=== PATIENT | female | born 1995 | race Caucasian/White ===

== ENCOUNTER 2016-12-03 18:57 | Emergency (ER) | payer MEDICAID, OTHER ==
[2016-12-03 20:08] LABS: Clarity Hazy (Clear); Glucose, Urine (Dipstick) Negative (Negative); Leukocyte Moderate (Negative); Nitrite Negative (Negative); Pregnancy Test - Urine (BHCG) Negative (Negative); Pregu Control Background? CLEAR/WHITE (CLR/WHITE); Pregu Control Bar Appear? YES (CONTROL BAR); Protein, Urine (Dipstick) Negative (Neg-Trace); Specific Gravity 1.015 (1.002-1.036); Specific Gravity, Urine 1.015 (1.005-1.030)
[2016-12-03 20:09] LABS: Bacteria/HPF 1+ HPF (None Seen); Bilirubin Negative (Negative); Blood, Urine Trace (Negative); RBC/HPF 0-3 HPF (0-3)
[2016-12-03 20:13] LABS: #Basophils 0.1 thou/uL (0.0-0.2); #Eosinphils 0.1 thou/uL (0.0-0.7); #Lymphocytes 2.3 thou/uL (1.20-3.40); #Monocytes 0.4 thou/uL (0.11-0.59); #Neutrophils 4.5 thou/uL (1.40-6.50); %Basophils 0.9 % (0.0-1.0); %Eosinophils 0.9 % (0.0-10.0); %Neutrophils 61.3 % (42.0-75.0); Hemoglobin 14.6 g/dL (12.0-16.0); Mean Corpuscular HGB CONC 35.4 g/dL (32.0-36.0); Mean Corpuscular Hemoglobin 31.8 pg (27.0-31.0); Mean Corpuscular Volume 89.7 fl (81.0-99.0); Mean Platelet Volume 12.3 fL (7.4-10.4); Platelet Count 139 thou/uL (130-400); RBC Distribution Width 11.1 % (11.5-14.5); Red Blood Cell (RBC) Count 4.59 mill/uL (4.20-5.40); White Blood Cell (WBC) Count 7.3 thou/uL (4.8-10.8)
[2016-12-03 20:14] LABS: ALT (SGPT) 117 U/L (8-55); AST (SGOT) 51 U/L (5-34); Alkaline Phosphatase 101 U/L (40-150); Anion Gap 16 mmol/L (10-20); Anisocytosis SLIGHT = 6-15 cells (100X) (0-5/hpf); BUN (Urea Nitrogen) 9 mg/dL (7.0-18.7); Bilirubin, Total 0.4 mg/dL (0.2-1.2); Calc. Creatinine Clearance 0 mL/min (70-130); Calcium 8.7 mg/dL (7.8-10.44); Carbon Dioxide 20 mmol/L (22-29); Chloride 107 mmol/L (98-107); Estimated GFR-MDRD Greater than 90; Globulin 2.6 g/dL (2.4-3.5); Glucose 124 mg/dL (70-105); MDiff Complete? YES; Potassium 3.7 mmol/L (3.5-5.1); Protein, Total 6.6 g/dL (6.0-8.3); Sodium 139 mmol/L (136-145)
[2016-12-03] MEDS ORDERED: traMADol HCl 50 MG TAB ONE (21:08)
[2016-12-03] MEDS ORDERED: Sulfameth/Trimethoprim DS 800-160mg TAB ONE (21:09)
[2016-12-03] MEDS ORDERED: Ondansetron ODT 4 MG TAB ONE (21:09)
[2016-12-03] MEDS ORDERED: Tobramycin Sulfate 0.3% Ophth Susp 5 ml Bottle ONE (21:34)
== END 2016-12-03 21:40 | disposition home or self-care (01) ==
LOC: MADERS 18:57
DX: N39.0 Urinary tract infection, site not specified (principal); H10.9 Unspecified conjunctivitis; F41.9 Anxiety disorder, unspecified; F17.200 Nicotine dependence, unspecified, uncomplicated; Z79.899 Other long term (current) drug therapy
CPT/HCPCS: 80053; 81001; 81025; 85025; 87086; 99284; Q0162

== ENCOUNTER 2017-03-10 13:48 | Emergency (ER) | payer MEDICAID, OTHER ==
[2017-03-10 14:31] LABS: Bilirubin Negative (Negative); Blood, Urine Trace (Negative); Clarity Clear (Clear); Glucose, Urine (Dipstick) Negative (Negative); Leukocyte Negative (Negative); Nitrite Negative (Negative); Protein, Urine (Dipstick) Negative (Neg-Trace); Specific Gravity, Urine 1.025 (1.005-1.030); Urobilinogen 0.2 mg/dL (0.2-1.0)
[2017-03-10 14:32] LABS: Bacteria/HPF Rare-Few HPF (None Seen); RBC/HPF 0-3 HPF (0-3); Squamous Epithelial 0-3 HPF (0-3); WBC/HPF 0-3 HPF (0-3)
[2017-03-10 14:45] LABS: Pregnancy Test - Urine (BHCG) Negative (Negative); Pregu Control Background? CLEAR/WHITE (CLR/WHITE); Pregu Control Bar Appear? YES (CONTROL BAR); Specific Gravity 1.025 (1.002-1.036)
== END 2017-03-10 15:15 | disposition home or self-care (01) ==
LOC: MADERS 13:48
DX: J01.00 Acute maxillary sinusitis, unspecified (principal); H65.93 Unspecified nonsuppurative otitis media, bilateral; F41.9 Anxiety disorder, unspecified; F17.200 Nicotine dependence, unspecified, uncomplicated
CPT/HCPCS: 81003; 81015; 81025; 99283

== ENCOUNTER 2017-03-26 13:06 | Emergency (ER) | payer MEDICAID, SELFPAY ==
[2017-03-26] MEDS ORDERED: Mupirocin 2% Ointment 22 GM Tube ONE (14:01)
[2017-03-26] MEDS ORDERED: Sulfameth/Trimethoprim DS 800-160mg TAB ONE (14:01)
[2017-03-26] MEDS ORDERED: Azithromycin 250 MG TAB ONE (14:01)
== END 2017-03-26 14:05 | disposition home or self-care (01) ==
LOC: MADERS 13:06
DX: L01.00 Impetigo, unspecified (principal); F41.9 Anxiety disorder, unspecified; F17.210 Nicotine dependence, cigarettes, uncomplicated
CPT/HCPCS: 87070; 87077; 87186; 87205; 99283

== ENCOUNTER 2020-12-04 17:04 | Emergency (ER) | payer SELFPAY ==
[2020-12-04] MEDS ORDERED: Lidocaine 1% 20 ML MDV ONE (18:13)
[2020-12-04] MEDS ORDERED: cefTRIAXone\\ROCEPHIN 1 GM VIAL ONE (18:13)
== END 2020-12-04 18:35 | disposition home or self-care (01) ==
LOC: MADERS 17:04
DX: H65.93 Unspecified nonsuppurative otitis media, bilateral (principal); J01.90 Acute sinusitis, unspecified; R51.9 Headache, unspecified; R49.0 Dysphonia; F17.210 Nicotine dependence, cigarettes, uncomplicated
CPT/HCPCS: 96372; 99283; J0696; J1040

== ENCOUNTER 2021-05-10 13:38 | Emergency (ER) | payer MEDICAID, SELFPAY ==
[2021-05-10] MEDS ORDERED: Fluorescein Opthalmic Strip ONE (14:06)
[2021-05-10] MEDS ORDERED: Tetracaine 0.5% PF 4 ML BOT ONE (14:07)
== END 2021-05-10 14:53 | disposition home or self-care (01) ==
LOC: MADERS 13:38
DX: H10.12 Acute atopic conjunctivitis, left eye (principal); F17.210 Nicotine dependence, cigarettes, uncomplicated
CPT/HCPCS: 99283

== ENCOUNTER 2021-11-15 12:51 | Emergency (ER) | payer MEDICAID ==
[2021-11-15] MEDS ORDERED: Ibuprofen 800 MG TAB ONE (13:25)
== END 2021-11-15 13:29 | disposition home or self-care (01) ==
LOC: MADERS 12:51
DX: L03.011 Cellulitis of right finger (principal); F17.210 Nicotine dependence, cigarettes, uncomplicated
CPT/HCPCS: 99283

== ENCOUNTER 2022-04-16 05:42 | Emergency (ER) | payer MEDICAID, SELFPAY ==
[2022-04-16] MEDS ORDERED: Ondansetron ODT 4 MG TAB ONE (06:42)
== END 2022-04-16 07:50 | disposition home or self-care (01) ==
LOC: MADERS 05:42
DX: K52.9 Noninfective gastroenteritis and colitis, unspecified (principal); F17.210 Nicotine dependence, cigarettes, uncomplicated; Z79.899 Other long term (current) drug therapy
CPT/HCPCS: 99283; Q0162

== ENCOUNTER 2023-01-14 19:46 | Emergency (ER) | payer SELFPAY ==
[2023-01-14] MEDS ORDERED: ALPRAZolam 0.5 MG TAB ONE (20:37)
== END 2023-01-14 20:57 | disposition home or self-care (01) ==
LOC: MADERS 19:46
DX: F41.9 Anxiety disorder, unspecified (principal); F17.210 Nicotine dependence, cigarettes, uncomplicated
CPT/HCPCS: 99283

== ENCOUNTER 2023-07-16 09:00 | Emergency (ER) | payer BC, SELFPAY ==
[2023-07-16 10:17] LABS: SARS-CoV-2 NAA Rapid Test DETECTED (NotDetected)
== END 2023-07-16 10:21 | disposition home or self-care (01) ==
LOC: MADERS 09:00
DX: U07.1 COVID-19 (principal); F17.210 Nicotine dependence, cigarettes, uncomplicated
CPT/HCPCS: 71045; 87804; U0002

== ENCOUNTER 2024-02-03 17:54 | Emergency (ER) | payer BC ==
[2024-02-03] MEDS ORDERED: Sulfameth/Trimethoprim DS 800-160mg TAB ONE (18:15)
[2024-02-03] MEDS ORDERED: HYDROcodone/Acetaminophen 10/325 mg Tablet ONE (18:16)
[2024-02-03] MEDS ORDERED: Lidocaine 1% w/Epinephrine 1:100K 20 ML VIAL ONE (18:16)
== END 2024-02-03 18:44 | disposition home or self-care (01) ==
LOC: MADERS 17:54
DX: L02.416 Cutaneous abscess of left lower limb (principal); L03.116 Cellulitis of left lower limb; E11.9 Type 2 diabetes mellitus without complications; F17.210 Nicotine dependence, cigarettes, uncomplicated
CPT/HCPCS: 10060

== ENCOUNTER 2024-02-27 16:36 | Emergency (ER) | payer BC ==
[2024-02-27] MEDS ORDERED: Lidocaine 1% (PF) 30 ML VIAL ONE (17:18)
[2024-02-27] MEDS ORDERED: Bacitracin 1 PK ONE (17:56)
== END 2024-02-27 18:08 | disposition home or self-care (01) ==
LOC: MADERS 16:36
DX: S92.402A Displaced unspecified fracture of left great toe, initial encounter for closed fracture (principal); E11.9 Type 2 diabetes mellitus without complications; F17.210 Nicotine dependence, cigarettes, uncomplicated; X50.9XXA Other and unspecified overexertion or strenuous movements or postures, initial encounter
CPT/HCPCS: 10060; J2001

== ENCOUNTER 2024-05-12 17:43 | Emergency (ER) | payer BC ==
[2024-05-12 18:34] LABS: #Basophils 0.1 thou/uL (0.0-0.2); #Eosinophils 0.2 thou/uL (0.0-0.7); #Lymphocytes 2.5 thou/uL (1.20-3.40); #Monocytes 0.6 thou/uL (0.11-0.59); %Basophils 1.2 % (0.0-1.0); %Eosinophils 2.6 % (0.0-10.0); %Lymphocytes 26.4 % (21.0-51.0); %Monocytes 6.2 % (0.0-10.0); %Neutrophils 63.7 % (42.0-75.0); Hematocrit 42.5 % (36.0-47.0); Hemoglobin 14.1 g/dL (12.0-16.0); Mean Corpuscular HGB CONC 33.2 g/dL (32.0-36.0); Mean Corpuscular Hemoglobin 30.1 pg (27.0-31.0); Mean Corpuscular Volume 90.7 fl (78.0-98.0); Mean Platelet Volume 10.5 fL (7.4-10.4); Platelet Count 171 10x3/uL (130-400); RBC Distribution Width 10.8 % (11.5-14.5); Red Blood Cell (RBC) Count 4.68 mill/uL (4.20-5.40); White Blood Cell (WBC) Count 9.4 10x3/uL (4.8-10.8)
[2024-05-12 18:42] LABS: BHCG - Serum Negative (NEGATIVE); Pregs Control Background? CLEAR/WHITE (CLR/WHITE); Pregs Control Bar Appear? YES (CONTROL BAR)
[2024-05-12 18:49] LABS: ALT (SGPT) 20 U/L (8-55); AST (SGOT) 14 U/L (5-34); Albumin 3.9 g/dL (3.5-5.0); Alkaline Phosphatase 58 U/L (40-110); Anion Gap 13 mmol/L (10-20); BUN (Urea Nitrogen) 9 mg/dL (7.0-18.7); Bilirubin, Total 0.3 mg/dL (0.2-1.2); Calc. Creatinine Clearance 0 mL/min (70-130); Calcium 9.5 mg/dL (7.8-10.44); Carbon Dioxide 23 mmol/L (22-29); Chloride 107 mmol/L (98-107); Estimated GFR 121; Globulin 2.8 g/dL (2.4-3.5); Glucose 113 mg/dL (70-105); Magnesium 1.8 mg/dL (1.6-2.6); Potassium 3.6 mmol/L (3.5-5.1); Protein, Total 6.7 g/dL (6.0-8.3); Sodium 139 mmol/L (136-145); Troponin I Less than 0.010 ng/mL (< 0.028)
[2024-05-12] MEDS ORDERED: Metoclopramide HCl 10 MG (2 mL) VIAL ONE (19:05)
[2024-05-12] MEDS ORDERED: Ketorolac Tromethamine 30 MG (1 mL) VIAL ONE (19:06)
[2024-05-12] MEDS ORDERED: Sodium Chloride 0.9% 250 ML 250 ML ONE (19:06)
== END 2024-05-12 20:20 | disposition home or self-care (01) ==
LOC: MADERS 17:43
DX: R00.0 Tachycardia, unspecified (principal); G43.909 Migraine, unspecified, not intractable, without status migrainosus; E11.9 Type 2 diabetes mellitus without complications; F17.210 Nicotine dependence, cigarettes, uncomplicated
CPT/HCPCS: 71045; 80053; 83735; 83880; 84443; 84484; 84703; 85025; 85379; 93005; 94760; 96374; 96375; J1885; J2765; J7050

== ENCOUNTER 2024-07-04 10:13 | Emergency (ER) | payer BC ==
[2024-07-04] MEDS ORDERED: Lidocaine 4% Patch ONE (10:42)
[2024-07-04] MEDS ORDERED: Acetaminophen 500 MG TAB ONE (10:42)
[2024-07-04] MEDS ORDERED: Dexamethasone 10 MG/ML VIAL ONE (10:42)
[2024-07-04] MEDS ORDERED: Acetaminophen 500 MG TAB PO SCH (11:00)
[2024-07-04] MEDS ORDERED: Lidocaine 4% Patch TD SCH (11:00)
[2024-07-04] MEDS ORDERED: Dexamethasone 10 MG/ML VIAL IM SCH (11:00)
== END 2024-07-04 11:06 | disposition home or self-care (01) ==
LOC: MADERS 10:13
DX: M43.6 Torticollis (principal); E11.9 Type 2 diabetes mellitus without complications; F17.210 Nicotine dependence, cigarettes, uncomplicated
CPT/HCPCS: 96372; 99283; J1100